=== PATIENT | female | born 1985 | race Caucasian/White ===

== ENCOUNTER 2016-03-04 09:59 | Emergency (ER) | payer OTHER ==
[~2016-03-04] VITALS: Wt 63.0 kg
[~2016-03-04 09:59] MED LIST: BEN25 PO; CYCL-319 PO; IBUP-1542 PO; IBUP800T25 PO; ONDA4TAB14 PO; ONDA4TAB35 PO; OXYC-279 PO; PREN-39 PO; RANI150T5 PO; ULT50 PO
[2016-03-04] MEDS ORDERED: ONDANSETRON (ODT) 4 MG TAB ODT STA (10:38)
[2016-03-04] MEDS ORDERED: DICLOFENAC SODIUM 37.5 MG/ML VIAL IV STA (10:38)
[2016-03-04] MEDS ORDERED: SOD CHLORIDE 0.9% 1,000 ML IV ONE (11:00)
[2016-03-04 11:38] LABS: BASOPHILS % 0.3 % (0.0-2.0); EOSINOPHILS # 0.1 10^3/ul (0.0-0.5); EOSINOPHILS % 1.2 % (0.0-7.0); HEMATOCRIT 39.2 % (37.0-47.0); HEMOGLOBIN 13.3 g/dl (12.0-16.0); LYMPHOCYTES # 1.4 10^3/ul (0.8-2.9); LYMPHOCYTES % 15.9 % (15.0-51.0); MEAN CORPUSCULAR HEMOGLOBIN 33.2 pg (29.0-33.0); MEAN CORPUSCULAR HGB CONC 33.8 g/dl (32.0-37.0); MEAN CORPUSCULAR VOLUME 98.4 fl (82.0-101.0); MEAN PLATELET VOLUME 6.8 fl (7.4-10.4); MONOCYTE # 0.6 10^3/ul (0.3-0.9); MONOCYTES % 6.7 % (0.0-11.0); NEUTROPHIL # 6.6 10^3/ul (1.6-7.5); NEUTROPHILS % 75.9 % (39.0-77.0); PLATELET COUNT 328 10^3/UL (140-440); RED BLOOD COUNT 3.99 10^6/ul (4.20-5.40); RED CELL DISTRIBUTION WIDTH 13.9 % (11.5-14.5); UNCORRECTED WBC 8.7 10^3/ul (4.8-10.8); WHITE BLOOD COUNT 8.7 10^3/ul (4.8-10.8)
[2016-03-04 11:39] LABS: ALBUMIN 4.2 g/dl (3.3-4.9)
[2016-03-04 11:40] LABS: CONDITION 1; POTASSIUM 4.5 mmol/L (3.5-5.1)
[2016-03-04 11:42] LABS: ALBUMIN/GLOBULIN RATIO 1.2; BILIRUBIN,INDIRECT 0.1 mg/dl (0-1.1); BILIRUBIN,TOTAL 0.1 mg/dl (0.2-1.3); CREATININE 0.73 mg/dl (0.44-1.00); TOTAL PROTEIN 7.7 g/dl (6.1-8.1)
--- NOTE | 2016-03-04 11:42 | RADRPT ---
PROCEDURE: XR Chest. CLINICAL INDICATION: chest pain , cough TECHNIQUE: PA and lateral views of the chest were obtained COMPARISON: 10/26/2015 FINDINGS: The heart and mediastinum are within normal limits. The lungs are clear. There is no pleural effusion or pneumothorax. The bones and soft tissues are unremarkable. RPTAT: AA IMPRESSION: No acute disease. .Carlos Pollack MD, MD Date Time Electronically viewed and signed by .Carlos Pollack MD, on 03/04/2016 11:41 .S/
[2016-03-04 11:43] LABS: CALCIUM 9.6 mg/dl (8.4-10.2)
[2016-03-04] MEDS ORDERED: METOCLOPRAMIDE 10 MG INJ IV ONE (12:00)
[2016-03-04] MEDS ORDERED: morphine 2 MG INJ IV ONE (12:00)
[2016-03-04] MEDS ORDERED: DIPHENHYDRAMINE 50 MG INJ IV ONE (12:00)
[2016-03-04 12:20] LABS: ADD UMIC YES; URINE BILIRUBIN (Dip) NEGATIVE (NEGATIVE); URINE BLOOD (Dip) NEGATIVE (NEGATIVE); URINE COLOR YELLOW (YELLOW); URINE GLUCOSE (Dip) NEGATIVE (NEGATIVE); URINE KETONES (Dip) NEGATIVE (NEGATIVE); URINE LEUKOCYTE ESTERASE (Dip) NEGATIVE (NEGATIVE); URINE NITRITE (Dip) NEGATIVE (NEGATIVE); URINE TOTAL PROTEIN (Dip) TRACE (NEGATIVE); URINE UROBILINOGEN (Dip) 0.2 E.U./dL (0.1-1.0)
[2016-03-04 12:44] LABS: SQUAMOUS EPITHELIAL CELL,UR MODERATE; URINE RBCS 0-2 /HPF (0)
[2016-03-04] MEDS ORDERED: ONDA4TAB8 PO (13:49)
[2016-03-04] MEDS ORDERED: D-ME473S18 PO (13:49)
[2016-03-04] MEDS ORDERED: ULT50 PO (13:50)
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
[2016-03-04 14:21] VITALS: BP 122/78; PULSE 78; RESP 18; TEMP 98
== END 2016-03-04 14:23 | disposition home or self-care (01) ==
LOC: FTE 09:59 → MERGE 09:59 → FTE 14:23
DX: R05 Cough (principal); R51 Headache; H92.09 Otalgia, unspecified ear
CPT/HCPCS: 71020; 80053; 81001; 85025; 87400; 96374; 96375; J1200; J2270; J2765; J7030; Z7502; Z7610; 81003

== ENCOUNTER 2016-03-21 18:04 | Emergency (ER) | payer OTHER ==
[~2016-03-21] VITALS: Ht 152.4 cm; Wt 47.5 kg
[~2016-03-21 18:04] MED LIST changes: +D-ME473S18 PO; +ONDA4TAB8 PO; +TRAM50TA2 PO; -ULT50 PO
[2016-03-21 18:49] VITALS: Ht 152.4 cm; Wt 47.5 kg
[2016-03-21] MEDS ORDERED: ONDANSETRON 4 MG INJ IV STA ×2 (19:28→20:28)
[2016-03-21] MEDS ORDERED: KETOROLAC 30 MG INJ IV STA (19:28)
[2016-03-21] MEDS ORDERED: SOD CHLORIDE 0.9% 1,000 ML IV STA (19:28)
[2016-03-21 20:01] LABS: ADD UMIC YES; URINE BILIRUBIN (Dip) NEGATIVE (NEGATIVE); URINE BLOOD (Dip) NEGATIVE (NEGATIVE); URINE COLOR YELLOW (YELLOW); URINE GLUCOSE (Dip) NEGATIVE (NEGATIVE); URINE KETONES (Dip) NEGATIVE (NEGATIVE); URINE LEUKOCYTE ESTERASE (Dip) NEGATIVE (NEGATIVE); URINE NITRITE (Dip) NEGATIVE (NEGATIVE); URINE TOTAL PROTEIN (Dip) 1+ (NEGATIVE); URINE UROBILINOGEN (Dip) 1.0 E.U./dL (0.1-1.0)
[2016-03-21 20:08] LABS: BASOPHILS % 0.5 % (0.0-2.0); EOSINOPHILS % 0.3 % (0.0-7.0); HEMATOCRIT 36.1 % (37.0-47.0); HEMOGLOBIN 12.3 g/dl (12.0-16.0); LYMPHOCYTES # 2.6 10^3/ul (0.8-2.9); LYMPHOCYTES % 36.9 % (15.0-51.0); MEAN CORPUSCULAR HEMOGLOBIN 32.9 pg (29.0-33.0); MEAN CORPUSCULAR HGB CONC 33.9 g/dl (32.0-37.0); MEAN PLATELET VOLUME 6.9 fl (7.4-10.4); MONOCYTE # 0.3 10^3/ul (0.3-0.9); MONOCYTES % 4.9 % (0.0-11.0); NEUTROPHIL # 4.1 10^3/ul (1.6-7.5); NEUTROPHILS % 57.4 % (39.0-77.0); PLATELET COUNT 304 10^3/UL (140-440); RED BLOOD COUNT 3.73 10^6/ul (4.20-5.40); RED CELL DISTRIBUTION WIDTH 13.8 % (11.5-14.5); UNCORRECTED WBC 7.1 10^3/ul (4.8-10.8); WHITE BLOOD COUNT 7.1 10^3/ul (4.8-10.8)
[2016-03-21 20:09] LABS: CONDITION 1
[2016-03-21 20:11] LABS: ALBUMIN 4.1 g/dl (3.3-4.9); URINE RBCS NONE SEEN /HPF (0)
[2016-03-21 20:12] LABS: BACTERIA,URINE FEW; POTASSIUM 4.1 mmol/L (3.5-5.1); SQUAMOUS EPITHELIAL CELL,UR MANY
[2016-03-21 20:14] LABS: ALBUMIN/GLOBULIN RATIO 1.24; BILIRUBIN,INDIRECT 1.3 mg/dl (0-1.1); BILIRUBIN,TOTAL 1.3 mg/dl (0.2-1.3); CREATININE 0.64 mg/dl (0.44-1.00); TOTAL PROTEIN 7.4 g/dl (6.1-8.1)
[2016-03-21 20:15] LABS: CALCIUM 8.9 mg/dl (8.4-10.2)
[2016-03-21] MEDS ORDERED: morphine 4 MG/ML VIAL IV STA (20:28)
[2016-03-21] MEDS ORDERED: morphine 2 MG INJ IV ONE (20:30)
--- NOTE | 2016-03-21 21:29 | RADRPT ---
PROCEDURE: Ultrasound pelvis CLINICAL INDICATION: Abdominal Pain TECHNIQUE: Multiple miranda scale and color Doppler images of the pelvis were obtained transabdominal ly and transvaginally. Images were reviewed PACS workstation COMPARISON: Obstetric ultrasound 09/07/2013 FINDINGS: The uterus is identified, measuring 8.4 x 3.8x 5.6 cm. The endometrial canal appears within normal limits, measuring 4 mm in thickness. There are nonspecific small echogenic foci at the external cerv ical os. The right ovary measures 2.4 x 1.6 x 1.9 cm. There is normal right and echotexture and maintained va scular flow. The left ovary is not well seen. There is no evidence of free fluid. There is no abnormal adnexal mass. IMPRESSION: 1. Unremarkable appearance of the uterus and right ovary. Left ovary not well seen. 2. No adnexal mass or free fluid. RPTAT: HBST . .William Patel MD, MD Date Time Electronically viewed and signed by .William Patel MD, on 03/21/2016 21:28 .T/
[2016-03-21] MEDS ORDERED: DIPHENHYDRAMINE 50 MG INJ IV ONE (22:00)
[2016-03-21] MEDS ORDERED: ONDA4TAB8 PO (22:09)
[2016-03-21] MEDS ORDERED: IBUP-1542 PO (22:10)
[2016-03-21] MEDS ORDERED: CETI10CA PO (22:10)
[2016-03-21] MEDS ORDERED: ACET500C5 PO (22:10)
[2016-03-21] MEDS ORDERED: BEN25 PO (22:10)
[2016-03-21] MEDS ORDERED: HC30CR25 TOP (22:12)
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
[2016-03-21 22:25] VITALS: BP 138/74; PULSE 69; RESP 16; TEMP 97.9
== END 2016-03-21 22:26 | disposition home or self-care (01) ==
LOC: FTE 18:04
DX: R10.2 Pelvic and perineal pain (principal); R11.2 Nausea with vomiting, unspecified
CPT/HCPCS: 36415; 76830; 76856; 80053; 81001; 83690; 85025; 96374; 96375; 96376; 99285; J1200; J1885; J2270; J2405; J7030; 81003

== ENCOUNTER 2016-04-07 19:51 | Emergency (ER) | payer OTHER ==
[~2016-04-07] VITALS: Ht 157.5 cm; Wt 48.0 kg
[~2016-04-07 19:51] MED LIST changes: +ACET500C5 PO; +CETI10CA PO; +HC30CR25 TOP
[2016-04-07 19:53] VITALS: Ht 157.5 cm; Wt 48.0 kg
[2016-04-07] MEDS ORDERED: SOD CHLORIDE 0.9% 1,000 ML IV STA (20:10)
[2016-04-07] MEDS ORDERED: ONDANSETRON 4 MG INJ IV STA ×2 (20:10→21:14)
[2016-04-07] MEDS ORDERED: DICLOFENAC SODIUM 37.5 MG/ML VIAL IV STA (20:10)
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
[2016-04-07] MEDS ORDERED: morphine 4 MG/ML VIAL IV STA (20:46)
[2016-04-07 20:56] LABS: ADD UMIC YES; URINE BILIRUBIN (Dip) NEGATIVE (NEGATIVE); URINE BLOOD (Dip) TRACE (NEGATIVE); URINE COLOR LT. YELLOW (YELLOW); URINE GLUCOSE (Dip) NEGATIVE (NEGATIVE); URINE KETONES (Dip) NEGATIVE (NEGATIVE); URINE LEUKOCYTE ESTERASE (Dip) TRACE (NEGATIVE); URINE NITRITE (Dip) NEGATIVE (NEGATIVE); URINE TOTAL PROTEIN (Dip) NEGATIVE (NEGATIVE); URINE UROBILINOGEN (Dip) 0.2 E.U./dL (0.1-1.0)
[2016-04-07 21:01] LABS: ALBUMIN 4.1 g/dl (3.3-4.9); POTASSIUM 3.7 mmol/L (3.5-5.1)
[2016-04-07 21:03] LABS: BILIRUBIN,INDIRECT 0.2 mg/dl (0-1.1); BILIRUBIN,TOTAL 0.2 mg/dl (0.2-1.3); CREATININE 0.84 mg/dl (0.44-1.00)
[2016-04-07 21:04] LABS: ALBUMIN/GLOBULIN RATIO 1.41; CALCIUM 8.8 mg/dl (8.4-10.2)
[2016-04-07 21:07] LABS: BASOPHILS % 0.2 % (0.0-2.0); EOSINOPHILS % 0.4 % (0.0-7.0); HEMATOCRIT 35.7 % (37.0-47.0); LYMPHOCYTES # 2.8 10^3/ul (0.8-2.9); LYMPHOCYTES % 30.6 % (15.0-51.0); MEAN CORPUSCULAR HEMOGLOBIN 33.2 pg (29.0-33.0); MEAN CORPUSCULAR HGB CONC 33.7 g/dl (32.0-37.0); MEAN CORPUSCULAR VOLUME 98.4 fl (82.0-101.0); MEAN PLATELET VOLUME 7.3 fl (7.4-10.4); MONOCYTE # 0.5 10^3/ul (0.3-0.9); MONOCYTES % 5.4 % (0.0-11.0); NEUTROPHIL # 5.8 10^3/ul (1.6-7.5); NEUTROPHILS % 63.4 % (39.0-77.0); PLATELET COUNT 384 10^3/UL (140-440); RED BLOOD COUNT 3.63 10^6/ul (4.20-5.40); RED CELL DISTRIBUTION WIDTH 14.4 % (11.5-14.5); UNCORRECTED WBC 9.1 10^3/ul (4.8-10.8); WHITE BLOOD COUNT 9.1 10^3/ul (4.8-10.8)
[2016-04-07 21:08] LABS: CONDITION 1
[2016-04-07] MEDS ORDERED: HYDROmorphONE 1 MG/ML SYG IV STA (21:14)
[2016-04-07] MEDS ORDERED: HYDR-902 PO (21:18)
[2016-04-07] MEDS ORDERED: ONDA4TAB14 PO (21:18)
[2016-04-07 21:46] VITALS: BP 112/67; PULSE 58; RESP 16; TEMP 98.2
[2016-04-07 21:47] LABS: BACTERIA,URINE RARE; SQUAMOUS EPITHELIAL CELL,UR MODERATE; URINE RBCS 0-2 /HPF (0)
== END 2016-04-07 21:47 | disposition home or self-care (01) ==
LOC: FTE 19:51
DX: R10.84 Generalized abdominal pain (principal); R11.2 Nausea with vomiting, unspecified
CPT/HCPCS: 36415; 80053; 81001; 83690; 85025; 96374; 96375; 96376; J1170; J2270; J2405; J7030; Z7502; Z7610; 81003

== ENCOUNTER 2016-04-09 12:43 | Emergency (ER) | payer OTHER ==
[~2016-04-09] VITALS: Ht 160 cm; Wt 68.0 kg
[~2016-04-09 12:43] MED LIST changes: +HYDR-902 PO
[2016-04-09 12:47] VITALS: Ht 160 cm; Wt 68.0 kg
[2016-04-09] MEDS ORDERED: ONDANSETRON 4 MG INJ IV STA ×2 (14:16→16:03)
[2016-04-09] MEDS ORDERED: SOD CHLORIDE 0.9% 1,000 ML IV ONE ×2 (14:30→16:30)
[2016-04-09] MEDS ORDERED: LIDOCAINE/MYLANTA 40 ML BTL PO ONE (14:30)
--- NOTE | 2016-04-09 14:55 | RADRPT ---
PROCEDURE: XR Chest. CLINICAL INDICATION: chest pain TECHNIQUE: Single frontal view of the chest was obtained COMPARISON: 09/15/12 FINDINGS: The heart and mediastinum are within normal limits. The lungs are clear. There is no pleural effusion or pneumothorax. RPTAT: AA IMPRESSION: No acute disease. .Carlos Pollack MD, MD Date Time Electronically viewed and signed by .Carlos Pollack MD, on 04/09/2016 14:55 .S/
[2016-04-09] MEDS ORDERED: DICLOFENAC SODIUM 37.5 MG/ML VIAL IV STA (14:57)
[2016-04-09 14:58] LABS: ALBUMIN 3.9 g/dl (3.3-4.9); POTASSIUM 3.7 mmol/L (3.5-5.1)
[2016-04-09 15:00] LABS: CREATININE 0.68 mg/dl (0.44-1.00)
[2016-04-09 15:01] LABS: ALBUMIN/GLOBULIN RATIO 1.34; CALCIUM 8.9 mg/dl (8.4-10.2); TOTAL PROTEIN 6.8 g/dl (6.1-8.1)
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
[2016-04-09 15:14] LABS: BASOPHILS % 0.5 % (0.0-2.0); EOSINOPHILS % 0.5 % (0.0-7.0); HEMATOCRIT 35.9 % (37.0-47.0); HEMOGLOBIN 12.3 g/dl (12.0-16.0); LYMPHOCYTES # 1.8 10^3/ul (0.8-2.9); LYMPHOCYTES % 26.9 % (15.0-51.0); MEAN CORPUSCULAR HEMOGLOBIN 33.7 pg (29.0-33.0); MEAN CORPUSCULAR HGB CONC 34.2 g/dl (32.0-37.0); MEAN CORPUSCULAR VOLUME 98.7 fl (82.0-101.0); MEAN PLATELET VOLUME 7.3 fl (7.4-10.4); MONOCYTE # 0.4 10^3/ul (0.3-0.9); MONOCYTES % 5.3 % (0.0-11.0); NEUTROPHIL # 4.5 10^3/ul (1.6-7.5); NEUTROPHILS % 66.8 % (39.0-77.0); PLATELET COUNT 377 10^3/UL (140-440); RED BLOOD COUNT 3.64 10^6/ul (4.20-5.40); RED CELL DISTRIBUTION WIDTH 14.3 % (11.5-14.5); UNCORRECTED WBC 6.7 10^3/ul (4.8-10.8); WHITE BLOOD COUNT 6.7 10^3/ul (4.8-10.8)
[2016-04-09 15:24] LABS: CONDITION 1
[2016-04-09] MEDS ORDERED: DIPHENHYDRAMINE 50 MG INJ IV ONE ×2 (15:30→16:00)
[2016-04-09 15:33] LABS: ADD UMIC NO; URINE BILIRUBIN (Dip) NEGATIVE (NEGATIVE); URINE BLOOD (Dip) NEGATIVE (NEGATIVE); URINE COLOR YELLOW (YELLOW); URINE GLUCOSE (Dip) NEGATIVE (NEGATIVE); URINE KETONES (Dip) NEGATIVE (NEGATIVE); URINE LEUKOCYTE ESTERASE (Dip) NEGATIVE (NEGATIVE); URINE NITRITE (Dip) NEGATIVE (NEGATIVE); URINE TOTAL PROTEIN (Dip) NEGATIVE (NEGATIVE); URINE UROBILINOGEN (Dip) 0.2 E.U./dL (0.1-1.0)
[2016-04-09] MEDS ORDERED: SOD CHLORIDE 0.9% 100 ML ONE (15:38)
[2016-04-09] MEDS ORDERED: IOHEXOL 300MG/ML 150 ML BTL ONE (15:38)
[2016-04-09] MEDS ORDERED: OMEP20CA16 PO (15:52)
[2016-04-09] MEDS ORDERED: RANI150T9 PO (15:52)
[2016-04-09] MEDS ORDERED: LORAZEPAM 2 MG INJ IV ONE (16:00)
--- NOTE | 2016-04-09 16:21 | RADRPT ---
PROCEDURE: US Abdomen Limited . CLINICAL INDICATION: Abdominal pain TECHNIQUE: Multiple real-time images were acquired of the patient's right upper quadrant abdomen u tilizing a high resolution transducer. COMPARISON: None FINDINGS: The liver measures 17.6 cm. A 3.5 cm hyperechoic mass is identified in the right lobe of the liver. The gallbladder has been removed. The common bile duct measures 4 mm in diameter. The visualized portions of the proximal pancreas are unremarkable. The tail of the pancreas is not well visualized. Antegrade flow is seen in the portal vein. Right kidney measures 9.2 cm. Right kidney demonstrates a normal echogenicity. No hydronephrosis, masses or stones are noted. IMPRESSION: 3.5 cm hyperechoic mass in the right lobe of the liver. This could reflect hemangioma versus true s oft tissue lesion. Malignancy cannot be excluded. Further characterization with triple phase liver p rotocol CT or MRI is recommended. Status post cholecystectomy. Tail of the pancreas not well visualized. If characterization of this structure is needed repeat exa m or CT/MRI is recommended. RPTAT: AA .Bon Garcia MD, MD Date Time Electronically viewed and signed by .Bon Garcia MD, MD on 04/09/2016 16:20 .P/
[2016-04-09] MEDS ORDERED: IOHEXOL 100 ML ONE (16:52)
[2016-04-09] MEDS ORDERED: IOHEXOL 350MG/ML 50 ML BTL ONE (16:53)
[2016-04-09] MEDS ORDERED: HYDROCODONE/APAP (5/325) TAB PO ONE ×2 (17:00→18:00)
--- NOTE | 2016-04-09 17:43 | RADRPT ---
PROCEDURE: CT Abdomen - liver protocol. CLINICAL INDICATION: Abdominal pain TECHNIQUE: CT scan of the abdomen with contrast was performed on a multidetector high-resolution C T scanner utilizing liver protocol with images acquired in the noncontrast phase, arterial phase, ve nous phase, and delayed 3-minute post contrast phase. Coronal and sagittal reformatted images were o btained from the axial source images. Images were reviewed on a high-resolution PACS workstation. 80 cc of Isovue 300 iodinated contrast was administered intravenously without reported complication. The total exam CTDI equals 4/4/5/4 mGy and the total exam DLP equals 571 mGy-cm. One or more of the following dose reduction techniques were used: Automated exposure control, Adjustment of the mA and /or kV according to patient size, and/or use of iterative reconstruction technique. COMPARISON: Abdominal ultrasound today FINDINGS: The lung bases are clear. Posterior right hepatic 3 cm mass with peripheral discontinuous enhancement and subsequent central f illing on the delayed images. There is an additional arterially hypervascular lesion in the posteri or right hepatic lobe measuring 11 mm which equilibrates with the liver on the venous and delayed im ages. The gallbladder surgically absent. The pancreas, spleen and adrenals are unremarkable. IMPRESSION: 3 cm posterior right hepatic hemangioma corresponds to the lesion seen on ultrasound. An additional 11 mm hypervascular lesion in the posterior right hepatic lobe is too small to definit ively characterize but could represent a flash filling hepatic hemangioma. Recommend 6 to 12-month f ollow-up imaging to re-evaluate. Status post cholecystectomy. RPTAT: AA .Bereket Guaman MD, Date Time Electronically viewed and signed by .Bereket Guaman MD, MD on 04/09/2016 17:43 .T/
--- NOTE | 2016-04-09 17:54 | EN ---
Date/Time of Note Date/Time of Note DATE: 04/09/16 TIME: 17:51 ER Progress Note PROCEDURE: US Abdomen Limited . CLINICAL INDICATION: Abdominal pain TECHNIQUE: Multiple real-time images were acquired of the patient's right upper quadrant abdomen utilizing a high resolution transducer. COMPARISON: None FINDINGS: The liver measures 17.6 cm. A 3.5 cm hyperechoic mass is identified in the right lobe of the liver. The gallbladder has been removed. The common bile duct measures 4 mm in diameter. The visualized portions of the proximal pancreas are unremarkable. The tail of the pancreas is not well visualized. Antegrade flow is seen in the portal vein. Right kidney measures 9.2 cm. Right kidney demonstrates a normal echogenicity. No hydronephrosis, masses or stones are noted. IMPRESSION: 3.5 cm hyperechoic mass in the right lobe of the liver. This could reflect hemangioma versus true soft tissue lesion. Malignancy cannot be excluded. Further characterization with triple phase liver protocol CT or MRI is recommended. Status post cholecystectomy. Tail of the pancreas not well visualized. If characterization of this structure is needed repeat exam or CT/MRI is recommended. RPTAT: AA .Bon Garcia MD, MD Date Time Electronically viewed and signed by .Bon Garcia MD, on 04/09/2016 16:20 PROCEDURE: CT Abdomen - liver protocol. CLINICAL INDICATION: Abdominal pain TECHNIQUE: CT scan of the abdomen with contrast was performed on a multidetector high-resolution CT scanner utilizing liver protocol with images acquired in the noncontrast phase, arterial phase, venous phase, and delayed 3- minute post contrast phase. Coronal and sagittal reformatted images were obtained from the axial source images. Images were reviewed on a high- resolution PACS workstation. 80 cc of Isovue 300 iodinated contrast was administered intravenously without reported complication. The total exam CTDI equals 4/4/5/4 mGy and the total exam DLP equals 571 mGy-cm. One or more of the following dose reduction techniques were used: Automated exposure control, Adjustment of the mA and/or kV according to patient size, and/or use of iterative reconstruction technique. COMPARISON: Abdominal ultrasound today FINDINGS: The lung bases are clear. Posterior right hepatic 3 cm mass with peripheral discontinuous enhancement and subsequent central filling on the delayed images. There is an additional arterially hypervascular lesion in the posterior right hepatic lobe measuring 11 mm which equilibrates with the liver on the venous and delayed images. The gallbladder surgically absent. The pancreas, spleen and adrenals are unremarkable. IMPRESSION: 3 cm posterior right hepatic hemangioma corresponds to the lesion seen on ultrasound. An additional 11 mm hypervascular lesion in the posterior right hepatic lobe is too small to definitively characterize but could represent a flash filling hepatic hemangioma. Recommend 6 to 12-month follow-up imaging to re-evaluate. Status post cholecystectomy. RPTAT: AA .Bereket Guaman MD, MD Date Time Electronically viewed and signed by .Bereket Guaman MD, on 04/09/2016 17:43 MDM: 30 year old female comes in with epigastric abdominal pain that sounds to be chronic. Ultrasound shows a stable 3.5 cm finding, which was followed up with a liver protocol CT abdomen that shows a 3 cm hepatic angioma. These results were discussed with the patient, she does appear to have chronic abdominal pain, she says that her she has a primary care doctor who has been in the hospital and was not able to see them. I have urged her to follow-up with a gas station manager but needs to speak to her doctor for a referral. Impression: Abdominal pain epigastric Discharge home stable. She states that she did not fill her prescription for [place], I advised her to fill that prescription, also new medications per Jerica Houston NP. EDMUNDO LOYA PA-C Apr 09, 2016 17:54
[2016-04-09 18:14] VITALS: BP 118/64; PULSE 74; RESP 16; TEMP 98.3
== END 2016-04-09 18:15 | disposition home or self-care (01) ==
LOC: FTE 12:43
DX: R10.13 Epigastric pain (principal); R11.2 Nausea with vomiting, unspecified
CPT/HCPCS: 36415; 71010; 74178; 76705; 80053; 81003; 83690; 85025; 93005; 96374; 96375; 96376; J1200; J2060; J2405; J7030; Q9967; Z7502; Z7610

== ENCOUNTER 2016-05-13 12:06 | Emergency (ER) | END 2016-05-13 15:45 | disposition left against medical advice (07) | DX: K08.89 Other specified disorders of teeth and supporting structures (principal) ==

== ENCOUNTER 2016-07-18 11:40 | Emergency (ER) | payer BC, OTHER ==
[~2016-07-18] VITALS: Wt 46.0 kg
[~2016-07-18 11:40] MED LIST changes: +CEPH-443 PO; +IBUP400T22 PO; +OMEP20CA16 PO; +RANI150T9 PO
[2016-07-18] MEDS ORDERED: SOD CHLORIDE 0.9% 1,000 ML IV STA (12:57)
[2016-07-18] MEDS ORDERED: ONDANSETRON 4 MG INJ IV STA ×2 (12:57→14:10)
[2016-07-18] MEDS ORDERED: morphine 4 MG/ML VIAL IV STA (12:57)
[2016-07-18 13:57] LABS: ADD SCAN DIFF NO
[2016-07-18 13:59] LABS: BASOPHILS % 0.6 % (0.0-2.0); EOSINOPHILS % 0.3 % (0.0-7.0); HEMATOCRIT 37.6 % (37.0-47.0); LYMPHOCYTES # 1.4 10^3/ul (0.8-2.9); LYMPHOCYTES % 18.7 % (15.0-51.0); MEAN CORPUSCULAR HEMOGLOBIN 33.5 pg (29.0-33.0); MEAN CORPUSCULAR HGB CONC 34.6 g/dl (32.0-37.0); MEAN CORPUSCULAR VOLUME 96.9 fl (82.0-101.0); MEAN PLATELET VOLUME 8.8 fl (7.4-10.4); MONOCYTE # 0.4 10^3/ul (0.3-0.9); MONOCYTES % 5.5 % (0.0-11.0); NEUTROPHIL # 5.4 10^3/ul (1.6-7.5); NEUTROPHILS % 74.6 % (39.0-77.0); PLATELET COUNT 296 10^3/UL (140-415); RED BLOOD COUNT 3.88 10^6/ul (4.20-5.40); RED CELL DISTRIBUTION WIDTH 13.3 % (11.5-14.5); WHITE BLOOD COUNT 7.2 10^3/ul (4.8-10.8)
[2016-07-18 14:02] LABS: ADD UMIC YES; URINE BILIRUBIN (Dip) NEGATIVE (NEGATIVE); URINE BLOOD (Dip) 3+ (NEGATIVE); URINE COLOR RED (YELLOW); URINE GLUCOSE (Dip) NEGATIVE (NEGATIVE); URINE KETONES (Dip) NEGATIVE (NEGATIVE); URINE LEUKOCYTE ESTERASE (Dip) TRACE (NEGATIVE); URINE NITRITE (Dip) NEGATIVE (NEGATIVE); URINE TOTAL PROTEIN (Dip) 2+ (NEGATIVE); URINE UROBILINOGEN (Dip) 0.2 E.U./dL (0.1-1.0)
[2016-07-18] MEDS ORDERED: HYDROmorphONE 1 MG/ML SYG IV STA (14:10)
[2016-07-18 14:15] LABS: ALBUMIN 4.3 g/dl (3.3-4.9)
[2016-07-18 14:16] LABS: POTASSIUM 4.3 mmol/L (3.5-5.1)
[2016-07-18 14:17] LABS: SQUAMOUS EPITHELIAL CELL,UR FEW; URINE RBCS >50 /HPF (0)
[2016-07-18 14:18] LABS: ALBUMIN/GLOBULIN RATIO 1.34; BILIRUBIN,INDIRECT 0.6 mg/dl (0-1.1); BILIRUBIN,TOTAL 0.6 mg/dl (0.2-1.3); CREATININE 0.65 mg/dl (0.44-1.00); TOTAL PROTEIN 7.5 g/dl (6.1-8.1)
[2016-07-18 14:19] LABS: CALCIUM 8.7 mg/dl (8.4-10.2)
--- NOTE | 2016-07-18 14:20 | RADRPT ---
PROCEDURE: US Pelvis. CLINICAL INDICATION: pelvic pain TECHNIQUE: Multiple sonographic images of the pelvis were obtained utilizing a transabdominal and endovaginal technique. The images were reviewed on a PACS workstation. COMPARISON: 03/21/2016 FINDINGS: The uterus is normal in size with a normal appearance of the myometrium. The uterus measures 8.2 x 3.7 x 5.2 cm. The endometrial stripe is homogeneous in appearance and has the thickness of 7 mm. The re is a small amount of fluid within the endometrium in the lower uterine segment. The right ovary measures 2.5 x 2.6 cm. There is normal Doppler flow in the right ovary. The left ovary was not visualized. No free fluid is present within the pelvis. RPTAT: AA IMPRESSION: Small amount of fluid within the endometrium in the lower uterine segment. Normal right ovary. Left ovary not visualized. .Carlos Pollack MD, Date Time Electronically viewed and signed by .Carlos Pollack MD, MD on 07/18/2016 14:19 .S/
--- NOTE | 2016-07-18 14:25 | RADRPT ---
PROCEDURE: CT Abdomen and Pelvis without contrast. CLINICAL INDICATION: Abdominal pain TECHNIQUE: CT scan of the abdomen and pelvis without contrast was performed on a multi-slice CT sc yonis without intravenous contrast. Coronal and sagittal reformatted images were obtained from the axial source images. Images were reviewed on a high-resolution PACS workstation. One or more of the following does reduction techniques were used: Automated exposure control; adjustment of the mA an d/or kV according to patient size; use of the aorta of reconstruction technique. The total exam CTD I equals 4.57 mGy and the total exam DLP equals 236.45 mGy-cm. COMPARISON: CT abdomen pelvis 04/09/2016 FINDINGS: The lung bases are clear. Heart size is normal, and there is no evidence of pericardial thickening or effusion. There is a 3 cm low density lesion abutting the IVC in the right lobe of the liver consistent with h epatic hemangioma seen on prior study. Smaller flash filling hemangioma is not appreciated on this noncontrast scan. The liver, spleen, and pancreas are otherwise normal given the limitations of a n oncontrast CT examination. The gallbladder is surgically absent.. The adrenal glands are normal. There is a punctate nonobstructing left upper pole renal calculus. No other renal calculi are seen. There is no evidence of hydronephrosis. The aorta is of normal caliber. There is no retroperitoneal lymph node enlargment. There is no evidence of large or small bowel obstruction. A normal appendix is identified.. No fr ee fluid or fluid collections are identified. No inflammatory changes are seen. The uterus is present. No enlarged pelvic sidewall lymph nodes are seen. The bladder is decompresse d and collapsed. No free fluid is identified. The inguinal regions are unremarkable. The bones are intact. IMPRESSION: 1. No CT evidence of acute intra-abdominal or pelvic process. 2. Punctate nonobstructing left upper pole renal calculus. 3. Stable 3 cm right hepatic mass consistent with hemangioma seen on prior imaging. 4. Status post cholecystectomy. RPTAT: KK .Wicho Apodaca MD, MD Date Time Electronically viewed and signed by .Wicho Apodaca MD, on 07/18/2016 14:25 .B/
[2016-07-18] MEDS ORDERED: ACET325T33 PO (14:32)
[2016-07-18] MEDS ORDERED: ONDA4TAB8 PO (14:32)
[2016-07-18 14:44] VITALS: BP 120/74; PULSE 65; RESP 18
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
== END 2016-07-18 16:25 | disposition home or self-care (01) ==
LOC: FTE 11:40
DX: N94.6 Dysmenorrhea, unspecified (principal); G89.29 Other chronic pain
CPT/HCPCS: 36415; 74176; 76830; 76856; 80053; 81001; 83690; 85025; 96374; 96375; 96376; 99285; J1170; J2270; J2405; J7030

== ENCOUNTER 2016-12-26 23:32 | Emergency (ER) | payer BC ==
[~2016-12-26] VITALS: Ht 160 cm; Wt 47.3 kg
[~2016-12-26 23:32] MED LIST changes: +ACET325T33 PO
[2016-12-26 23:34] VITALS: Ht 160 cm; Wt 47.3 kg
[2016-12-27] MEDS ORDERED: ONDA4TAB14 PO (00:45)
[2016-12-27] MEDS ORDERED: NITR-58 PO (00:45)
[2016-12-27] MEDS ORDERED: ACET500C5 PO (00:45)
[2016-12-27] MEDS ORDERED: HYDROCODONE/APAP (5/325) TAB PO ONE (01:30)
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
== END 2016-12-27 01:20 | disposition home or self-care (01) ==
LOC: FTE 23:32
DX: R10.9 Unspecified abdominal pain (principal)
CPT/HCPCS: 81003; 99283; Z7610